=== PATIENT | female | born 1995 | race Caucasian/White ===

== ENCOUNTER 2019-04-23 08:12 | Emergency (ER) | payer SELFPAY ==
[~2019-04-23] VITALS: Ht 157.5 cm; Wt 104.0 kg
[2019-04-23 08:24] VITALS: BP 136/94
--- NOTE | 2019-04-23 09:45 | NUR ---
PT GIVEN DC INSTRUCTIONS AND SCRIPT, EDUCATED REGARDING EYE DROP RX. PT AMB TO DC DESK WITH STEADY GAIT ACCOMPANIED BY MOTHER. SOLANGE AT DC.
== END 2019-04-23 09:58 | disposition home or self-care (01) ==
LOC: ED 09:24
DX: H10.023 Other mucopurulent conjunctivitis, bilateral (principal); B99.9 Unspecified infectious disease
CPT/HCPCS: 99283

== ENCOUNTER 2020-07-02 09:09 | Emergency (ER) | payer SELFPAY ==
[~2020-07-02] VITALS: Ht 162.6 cm; Wt 104.1 kg
--- NOTE | 2020-07-02 09:29 | NUR ---
first contact with pt. pt c/o dzy since thursday. pt stated ' room is spining' pt denies any other symptoms, no vision change/galarza/n/v. bp/spo2 monitors in place. call light within reach. pa at bedside for evaluation. ekg done at bedside by emt. pt's aox4. resps even and unlabored.
[2020-07-02] MEDS ORDERED: MECLIZINE CHEWABLE 25 MG TAB PO ONE (09:30)
[2020-07-02] MEDS ORDERED: MECLIZINE CHEWABLE 25 MG TAB ONE (09:34)
--- NOTE | 2020-07-02 09:36 | NUR ---
pt medicated per emar. pt tolerated well.
[2020-07-02 09:47] LABS: BASOPHILS % (AUTO) 1 % (0-1); EOSINOPHILS % (AUTO) 4 % (1-7); LYMPHOCYTES % (AUTO) 48 % (22-44); MEAN CORPUSCULAR HEMOGLOBIN 33.2 pg (27.0-34.8); MEAN CORPUSCULAR HGB CONC 35.1 g/dL (32.4-35.8); MEAN PLATELET VOLUME 7.6 fL (7.4-10.4); MONOCYTES % (AUTO) 6 % (2-9); NEUTROPHILS % (AUTO) 41 % (42-75); PLATELET COUNT 278 x10^3/uL (130-400); RED BLOOD COUNT 4.22 x10^6/uL (3.82-5.3); RED CELL DISTRIBUTION WIDTH 12.9 % (9.6-15.2)
[2020-07-02 09:58] LABS: ALBUMIN 3.7 g/dL (3.4-5.0); ANION GAP 9 mmol/L (5-15); CALCIUM 8.1 mg/dL (8.5-10.1); CHLORIDE 108 mmol/L (98-107); CREATININE 0.59 mg/dL (0.55-1.02)
[2020-07-02 10:21] LABS: MD SCAN
[2020-07-02 11:00] VITALS: BP 121/81
--- NOTE | 2020-07-02 11:03 | NUR ---
pt resting in [facility]. pt changed already. awating dc paper at this time.
--- NOTE | 2020-07-02 11:21 | NUR ---
Patient given discharge instructions and they have confirmed that they understand the instructions. Patient ambulatory with steady gait.
== END 2020-07-02 11:22 | disposition home or self-care (01) ==
LOC: ED 09:59
DX: H81.399 Other peripheral vertigo, unspecified ear (principal); H81.10 Benign paroxysmal vertigo, unspecified ear
CPT/HCPCS: 36415; 80048; 82040; 84703; 85025; 93005; 99284